=== PATIENT | female | born 1945 | race Caucasian/White ===

== ENCOUNTER 2017-09-09 13:41 | Emergency (ER) | payer MEDICARE, MEDICAID ==
[~2017-09-09] VITALS: Ht 165.1 cm; Wt 77.3 kg
[~2017-09-09 13:41] MED LIST: CIPR-245 PO
[2017-09-09] MEDS ORDERED: LEVO25TA9 PO (13:52)
[2017-09-09] MEDS ORDERED: GLIP5 PO (13:52)
[2017-09-09] MEDS ORDERED: METF500T6 PO (13:52)
[2017-09-09 13:58] LABS: GLUCOSE,POINT OF CARE 83 MG/DL (70-110)
[2017-09-09] MEDS ORDERED: KETOROLAC TROMETHAMINE 30 MG/ML VIAL IM ONE (14:30)
[2017-09-09] MEDS ORDERED: METHOCARBAMOL 500 MG TABLET PO ONE (14:30)
[2017-09-09 15:22] LABS: APPEARANCE,URINE CLEAR (CLEAR); BILIRUBIN,URINE NEGATIVE (NEGATIVE); GLUCOSE, URINE (UA) NEGATIVE (NEGATIVE); KETONES,URINE NEGATIVE (NEGATIVE); LEUKOCYTE ESTERASE ,URINE SMALL (NEGATIVE); NITRATE,URINE NEGATIVE (NEGATIVE); OCCULT BLOOD,URINE NEGATIVE (NEGATIVE); PROTEIN,URINE NEGATIVE (NEGATIVE); UROBILINOGEN,URINE 0.2 mg/dL (<=1.0)
[2017-09-09 15:40] LABS: BACTERIA,URINE Few /HPF (None Seen); RBC,URINE 0-2 /HPF (0-2)
[2017-09-09 15:41] LABS: SQUAMOUS EPITHELIAL CELL,UR Few /LPF (None Seen)
[2017-09-09] MEDS ORDERED: SULFAMETHOX/TRIMETH DS 800-160 MG/TABLET PO ONE (16:00)
[2017-09-09 16:20] VITALS: BP 141/73
== END 2017-09-09 16:32 | disposition home or self-care (01) ==
LOC: EMS 13:43
DX: M54.41 Lumbago with sciatica, right side (principal); N39.0 Urinary tract infection, site not specified; E11.9 Type 2 diabetes mellitus without complications; E03.9 Hypothyroidism, unspecified; Z88.0 Allergy status to penicillin
CPT/HCPCS: 81001; 82962; 87086; 96372; 99284; J1885

== ENCOUNTER 2020-07-25 11:30 | Emergency (ER) | payer MEDICAID, MEDICARE ==
[~2020-07-25] VITALS: Ht 165.1 cm; Wt 77.3 kg
[~2020-07-25 11:30] MED LIST changes: -CIPR-245 PO; +GLIP5 PO; +LEVO25TA9 PO; +METF-960 PO
[2020-07-25 11:47] LABS: GLUCOSE,POINT OF CARE 108 MG/DL (70-110)
[2020-07-25] MEDS ORDERED: HYDROCODONE/ACETAMINOPHEN 5-325 MG TABLET PO ONE (13:00)
[2020-07-25 13:24] VITALS: BP 131/68
== END 2020-07-25 13:53 | disposition home or self-care (01) ==
LOC: EMS 11:32
DX: K04.7 Periapical abscess without sinus (principal); K02.9 Dental caries, unspecified
CPT/HCPCS: 99283